=== PATIENT | female | born 1960 | race Hispanic/Latino ===

== ENCOUNTER 2019-04-28 09:00 | Observation (INO) | payer OTHER, MEDICARE ==
[2019-04-25 10:20] VITALS: BP 148/90
[2019-04-25 11:09] LABS: APPEARANCE,URINE Cloudy (CLEAR); BILIRUBIN,URINE Negative (NEGATIVE); COLOR,URINE Yellow (YELLOW); GLUCOSE, URINE (UA) Negative (NEGATIVE); KETONES,URINE Negative (NEGATIVE); LEUKOCYTE ESTERASE ,URINE Moderate (NEGATIVE); NITRATE,URINE Negative (NEGATIVE); OCCULT BLOOD,URINE Trace (NEGATIVE); PH,URINE 5.5 (5.0-8.0); PROTEIN,URINE Negative (NEGATIVE)
[2019-04-25 11:19] LABS: BACTERIA,URINE Moderate /HPF (None Seen); SQUAMOUS EPITHELIAL CELL,UR Few /HPF (0-2)
--- NOTE | 2019-04-25 16:02 | NUR ---
LABS ABNORMAL UA REPORTED TO DR. IZAGUIRRE, FURTHER ORDERS GIVEN AND WILL BE CARRIED OUT.
[2019-04-28] VITALS (26 sets, daily range): BP systolic 131–174; BP diastolic 70–88
[~2019-04-28] VITALS: Ht 162.6 cm; Wt 137.0 kg
[~2019-04-28 09:00] MED LIST: ALBUTEROL HFA IH; ATOR10 PO; BACL10TA PO; DICLOFENAC GEL TP; ESOM40CA54 PO; GENTAMICIN SULFATE 240 MG in SODIUM CHLORIDE 0.9% 100 ML IV SCH; LISI10TA7 PO; MONT10TA24 PO; NAPR-1023 PO
[2019-04-28] MEDS ORDERED: SODIUM CHLORIDE 0.9% 1000ML 1,000 ML IV ONE (09:37)
[2019-04-28] MEDS: CEFAZOLIN SODIUM 1 GM VIAL ONE ×2 (10:05→13:55)
[2019-04-28] MEDS ORDERED: KETOROLAC TROMETHAMINE 15MG/ML ONE (12:05)
[2019-04-28] MEDS ORDERED: METOCLOPRAMIDE 10 MG/2 ML VIAL ONE (12:05)
[2019-04-28] MEDS ORDERED: ACETAMINOPHEN EXTRA STRENGTH 500 MG TABLET ONE (12:05)
[2019-04-28] MEDS ORDERED: OXYCODONE HCL 10 MG TAB.SR.12H PO ONE (12:06)
[2019-04-28] MEDS ORDERED: CELECOXIB 200 MG CAP ONE (12:06)
[2019-04-28] MEDS ORDERED: CEFAZOLIN SODIUM 1 GM VIAL ONE ×2 (12:12→13:30)
[2019-04-28] MEDS ORDERED: SUCCINYLCHOLINE 200MG/10ML SYR ONE (13:09)
[2019-04-28] MEDS ORDERED: LIDOCAINE PF 2% 5ML ABBOJECT ONE ×2 (13:09→16:28)
[2019-04-28] MEDS ORDERED: FENTANYL CITRATE PF 50 MCG/1 ML 2ML VIAL ONE (13:10)
[2019-04-28] MEDS ORDERED: ROCURONIUM 10MG/1ML SYR 10 MG/ML ML ONE (13:10)
[2019-04-28] MEDS ORDERED: PROPOFOL 10 MG/ML 20ML VIAL IV ONE (13:10)
[2019-04-28] MEDS ORDERED: ROPIVACAINE 0.5% 5MG/ML 30ML IJ ONE (13:11)
[2019-04-28] MEDS ORDERED: MIDAZOLAM HCL 1 MG/ML 2ML VIAL ONE (13:18)
[2019-04-28] MEDS ORDERED: TRANEXAMIC ACID 1000MG/10ML IV ONE ×2 (13:25→16:49)
[2019-04-28] MEDS: SODIUM CHLORIDE 0.9% 1000ML 1,000 ML IV SCH (15:49)
[2019-04-28] MEDS: ACETAMINOPHEN EXTRA STRENGTH 500 MG TABLET PO SCH (16:00)
[2019-04-28] MEDS ORDERED: OXYCODONE HCL 5 MG TAB PO PRN (16:00)
[2019-04-28] MEDS ORDERED: DiphenhydrAMINE HCL 50 MG/ML VIAL IVP PRN (16:00)
[2019-04-28] MEDS ORDERED: POTASSIUM CHLORIDE 10% ELIXIR 20 MEQ/15 ML UDCUP PO PRN (16:00)
[2019-04-28] MEDS ORDERED: CALCIUM CARBONATE 500 MG TABLET PO PRN (16:00)
[2019-04-28] MEDS ORDERED: POTASSIUM CHLORIDE 20MEQ/100ML 100 ML IV PRN (16:00)
[2019-04-28] MEDS ORDERED: POTASSIUM CHLORIDE 20 MEQ ERTAB PO PRN (16:00)
[2019-04-28] MEDS ORDERED: FERROUS FUMARATE 324 MG TABLET PO PRN (16:00)
[2019-04-28] MEDS ORDERED: TEMAZEPAM 15 MG CAPSULE PO PRN (16:00)
[2019-04-28] MEDS ORDERED: TRAMADOL HCL 50 MG TABLET PO PRN (16:00)
[2019-04-28] MEDS ORDERED: LIDOCAINE HCL-MPF 1% 2ML VIAL IV PRN (16:00)
[2019-04-28] MEDS ORDERED: ONDANSETRON HCL 4 MG/2 ML VIAL IVP PRN (16:00)
[2019-04-28] MEDS ORDERED: KETOROLAC TROMETHAMINE 15MG/ML IV PRN (16:00)
[2019-04-28] MEDS ORDERED: KETOROLAC TROMETHAMINE 30MG/ML ONE (16:03)
[2019-04-28] MEDS ORDERED: GLYCOPYRROLATE 1 MG/5 ML SYRINGE ONE (16:03)
[2019-04-28] MEDS ORDERED: ONDANSETRON HCL 4 MG/2 ML VIAL ONE (16:04)
[2019-04-28] MEDS ORDERED: DEXAMETHASONE SOD PHOSPHATE 10MG/ML 1ML VIAL ONE (16:04)
[2019-04-28] MEDS ORDERED: NEOSTIGMINE 5MG/5ML SYR IV ONE (16:05)
[2019-04-28] MEDS ORDERED: ALBUTEROL SULFATE 0.083% 2.5 MG/3 ML INH IH PRN (19:45)
[2019-04-28] MEDS: PREGABALIN 25 MG CAP PO SCH (20:18)
[2019-04-28] MEDS: FAMOTIDINE 20MG TAB 20 MG TAB PO SCH (20:18)
[2019-04-28] MEDS: LISINOPRIL 10 MG TABLET PO SCH (20:18)
[2019-04-28] MEDS: MONTELUKAST SODIUM 10 MG TAB PO SCH (20:18)
[2019-04-28] MEDS: ATORVASTATIN CALCIUM 20 MG TABLET PO SCH (20:18)
[2019-04-28] MEDS: APIXABAN 2.5 MG TABLET PO SCH (20:19)
[2019-04-28] MEDS: CELECOXIB 200 MG CAP PO SCH (20:19)
[2019-04-28] MEDS: CEFAZOLIN 3GM /D5W 100ML 100 ML IV SCH (20:19)
[2019-04-28] MEDS: OXYCODONE HCL 5 MG TAB PO PRN (20:20)
[2019-04-29] MEDS: SODIUM CHLORIDE 0.9% 1000ML 1,000 ML IV SCH ×2 (01:57→11:49)
[2019-04-29] MEDS: ACETAMINOPHEN EXTRA STRENGTH 500 MG TABLET PO SCH ×3 (01:58→16:40)
[2019-04-29 04:00] VITALS: BP 109/62
[2019-04-29 05:05] LABS: HEMATOCRIT 37.9 % (36-48); MEAN CORPUSCULAR HEMOGLOBIN 30.1 pg (27.0-33.0); MEAN CORPUSCULAR HGB CONC 33.2 g/dL (32.0-36.0); MEAN CORPUSCULAR VOLUME 90.9 fL (79-99); PLATELET COUNT (AUTO) 170 K/uL (130-400); RED BLOOD CELL COUNT(AUTO) 4.17 MIL/uL (4.00-5.50); RED CELL DISTRIBUTION WIDTH 14.7 % (11.0-15.5); WHITE BLOOD COUNT (AUTO) 11.2 K/uL (4.8-10.8)
[2019-04-29 05:10] LABS: CREATININE 0.9 mg/dL (0.5-1.5); POTASSIUM 4.7 mmol/L (3.5-5.1)
[2019-04-29] MEDS: CEFAZOLIN 3GM /D5W 100ML 100 ML IV SCH (05:11)
[2019-04-29 08:35] VITALS: BP 131/74
[2019-04-29] MEDS ORDERED: POLYETHYLENE GLYCOL 3350 17 GM POWD.PACK PO SCH (09:00)
[2019-04-29] MEDS ORDERED: PANTOPRAZOLE SODIUM 40 MG TABLET.DR PO SCH (09:00)
--- NOTE | 2019-04-29 09:00 | NUR ---
INITIAL MET W PT /SP TKA, OBESE, INDP, LIVES ALONE, NO DME. NO STAIRS IN HOME, ORDER FOR REHAB IN NETWORK- DISCUSSE W PT, WANTED [facility], [facility] CONSENT AT 0850, CALL TO [facility] SENT INC [facility]. ANTICIPATE DC FOR TODAY Addendum: 04/29/19 at 1636 by BRIDGETTE REMY RN Amended: Links added.
[2019-04-29] MEDS: CELECOXIB 200 MG CAP PO SCH ×2 (09:03→20:10)
[2019-04-29] MEDS: APIXABAN 2.5 MG TABLET PO SCH ×2 (09:03→20:11)
[2019-04-29] MEDS: PREGABALIN 25 MG CAP PO SCH ×2 (09:03→20:11)
[2019-04-29] MEDS: FAMOTIDINE 20MG TAB 20 MG TAB PO SCH ×2 (09:04→20:10)
[2019-04-29] MEDS: OXYCODONE HCL 5 MG TAB PO PRN ×3 (09:05→19:20)
--- NOTE | 2019-04-29 10:07 | NUR ---
REFERRAL TO [facility] IN PROCESS REFERRAL PKT SENT, MATT RANGEL AND ON HER WAY TO ASSESS PT, [facility] PT NOTES AND PASSR SENT Addendum: 04/29/19 at 1010 by BRIDGETTE REMY RN CM Amended: Links added.
--- NOTE | 2019-04-29 16:36 | NUR ---
JULIO MURILLO'Lb DAY CALL TO DR. IZAGUIRRE TO INFORM. CM INFORMED PT, PT STATES OK TO DC TONIGHT IF MD ORDERS ADVISED OF POSSIBLE LATE DC WILL GO BY FACILITY VAN CHART TAGGED Addendum: 04/29/19 at 1638 by BRIDGETTE REMY RN CM Amended: Links added.
[2019-04-29 16:40] VITALS: BP 101/70
[2019-04-29 17:05] VITALS: BP 136/82
--- NOTE | 2019-04-29 17:14 | NUR ---
PATIENT 'S VITAL SIGNS TAKEN POST FALL BP 138/78 HEAR RATE 87 TEMP 98.1 O2 95 ROOM AIR RESPIRATIONS 19 PT DENIES SOB OR CHEST PAIN CHARGE NURSE AND HOUSE SUP AT BED SIDE
--- NOTE | 2019-04-29 17:15 | NUR ---
DR. IZAGUIRRE AWARE THAT PATIENT FELT PT WAS IN THE BATHROOM , EMERGENCY LIGHT WITH PATIENT PATIENT STATES SHE LEANED FOWARD TO WIPE AND FELT FOWARD DR. IZAGUIRRE AWARE PT HAS A SCRAPE ON HER NOSE AND BLEEDING ON OPERATIVE LEG NO FURTHER ORDERS, JUST TO CHANGE DRESSING
[2019-04-29] MEDS ORDERED: APIX2.5T PO (18:07)
[2019-04-29] MEDS ORDERED: HYDR-4457 PO (18:07)
--- NOTE | 2019-04-29 18:35 | NUR ---
CALLED REPORT TO SANDRA FROM [facility]- FULL SBAR FULL REPORT ON D/C ORDERS FROM DR. IZAGUIRRE AND FULL D/C SUMMARY STATED WOULD SEND COMBER TENDER
--- NOTE | 2019-04-29 18:50 | NUR ---
SANDRA FROM [facility]- FACILITY STATING, THE CERAMICS TEACHER IS GONE AND NO ONE CAN PICK THE PT UP AND PT WOULD NEED TO BE TRANSFER VIA EMS
--- NOTE | 2019-04-29 19:25 | NUR ---
EMS CALLED ALL PAPER SENT [place] AWARE AMANDA CLAIRE
[2019-04-29 19:43] VITALS: BP 118/66
--- NOTE | 2019-04-29 19:50 | NUR ---
ERAN , WITH EMS STATED THEY RECEIVED ALL THE PAPER WORK AND IN CASE INSURANCE DOESNT COVER, ASKED IF [facility] WOULD TAKE THE BILL BRAD LANG AWARE, TOLD ME TO CALL AMANDA KRAMER, AMANDA RANGEL STATED "YES" . APPROVED IT. ERAN WITH EMS, AWARE THAT HOSPITAL WOULD TAKE BILL, IF INSURACE DOES NOT COVER STATED PT IS ON THE LIST FOR PROCESSOR HELPER AND TRANSFER AND IS NUMBER 3 ON THE LIST ENDORSE CARE TO NIGHT NURSE
[2019-04-29] MEDS: ATORVASTATIN CALCIUM 20 MG TABLET PO SCH (20:11)
[2019-04-29] MEDS: MONTELUKAST SODIUM 10 MG TAB PO SCH (20:11)
[2019-04-29] MEDS: LISINOPRIL 10 MG TABLET PO SCH (20:14)
--- NOTE | 2019-04-29 21:20 | NUR ---
DISCHARGE PATIENT DISCHARGED TO [facility] VIA EMS. ALL BELONGINGS AND PAPER WORK AT PATIENT SIDE. PATIENT'S SPOUSE AT SIDE WITH EMS.
[2019-05-01] MEDS ORDERED: BISACODYL 10 MG SUPP.RECT RC PRN (16:00)
== END 2019-04-29 21:17 ==
LOC: DAH 09:00 → 4AH 09:01
PROVIDERS: ADMIT Orthopaedic Surgery; ATTEND Orthopaedic Surgery
DX: M17.11 Unilateral primary osteoarthritis, right knee (principal); E66.01 Morbid (severe) obesity due to excess calories; Z79.899 Other long term (current) drug therapy
CPT/HCPCS: 27447; 36415; 80048; 81001; 85027; 87088; 87641; 88304; 88311; 94664; 96365; 96366; 96367; 96375 ×2; 97039; 97116 ×2; 97161; 97530 ×2; A4215; A4221; A4222; A4223 ×2; A4649 ×7; A4930 ×2; A5120; C1763; C1776; G0168; G0378 ×29; G8978; G8979; G8980; G8981; G8982; G8983; J0330; J0690 ×4; J1100; J1580; J1885 ×2; J2001 ×2; J2250; J2405; J2704; J2710; J2765; J2795; J3010; J3490 ×3; J7030 ×2; 96374